=== PATIENT | male | born 1955 | race Caucasian/White ===

== ENCOUNTER 2021-12-26 21:52 | Emergency (ER) | payer OTHER, SELFPAY ==
[2021-12-26 22:40] VITALS: BP 139/77; PULSE 91; RESP 18; TEMP 37; O2SAT 97; BMI 27.8
--- NOTE | 2021-12-26 22:51 | DI.RAD.S_ITS ---
PROCEDURE: XR CHEST 1V INDICATIONS: suspected sepsis TECHNIQUE: One view of the chest was acquired. COMPARISON: None. FINDINGS: Surgical changes and devices: None. Lungs and pleura: Lungs are clear. No pleural effusions or pneumothorax. Mediastinum: Mediastinal contours appear normal. Heart size is normal. Bones and chest wall: No suspicious bony lesions. Overlying soft tissues appear unremarkable. IMPRESSION: No acute finding. Dictated by: Brandan Lowe M.D. on 12/26/2021 at 23:05 Approved by: Brandan Lowe M.D. on 12/26/2021 at 23:05
[2021-12-26 23:18] LABS: Add Manual Diff / Slide Review NO; Basophils Absolute Auto 0 /uL (0-100); Basophils Percent Auto 0.3 % (0-2); Eosinophils Absolute Auto 100 /uL (0-450); Eosinophils Percent Auto 0.7 % (2-4); Hematocrit 38.1 % (41-53); Hemoglobin 13.5 g/dL (13.5-17.5); Lymphocytes Absolute Auto 1900 /uL (1100-4500); Lymphocytes Percent Auto 20.1 % (25-40); Mean Corpuscular HGB Conc 35.5 % (30-36); Mean Corpuscular Hemoglobin 31.3 PG (26-34); Mean Corpuscular Volume 88.3 fL (80-100); Monocytes Absolute Auto 800 /uL (0-900); Monocytes Percent Auto 8.3 % (3-14); Neutrophils Absolute Auto 6800 /uL (1500-7000); Neutrophils Percent Auto 70.6 % (50-75); Platelet Count 188 X10^3/uL (150-400); Red Blood Cell Count 4.32 X10^6/uL (4.5-5.9); Red Cell Distribution Width 12.8 % (11.6-14.8); White Blood Cell Count 9.7 X10^3/uL (4.5-11.0)
[2021-12-26 23:23] LABS: Lactate (Lactic Acid) 0.8 mmol/L (0.7-2.1)
[2021-12-26 23:24] LABS: Alanine Aminotransferase 26 IU/L (<50); Albumin 4.5 g/dL (3.5-5.0); Albumin Globulin Ratio 1.6 (1.0-2.8); Alkaline Phosphatase 77 U/L (38-126); Aspartate Aminotransferase 23 IU/L (17-59); BUN Creatinine Ratio 23.9 (6-22); Bilirubin Total 0.5 mg/dL (0.2-1.3); Blood Urea Nitrogen 22 mg/dL (9-20); Calcium 8.6 mg/dL (8.4-10.2); Carbon Dioxide 27 mmol/L (22-32); Chloride 104 mmol/L (98-107); Estimated Glomerular Filt Rate > 60 mL/min (>60); Globulin 2.9 g/dL (1.7-4.1); Glucose 90 mg/dL (80-110); HEMOLYSIS < 15 (0-50); Lipase 88 U/L (23-300); Potassium 3.8 mmol/L (3.4-5.1); Sodium 140 mmol/L (137-145); Total Protein 7.4 g/dL (6.3-8.2)
[2021-12-26 23:40] LABS: Procalcitonin 0.04 ng/mL (<0.5)
[2021-12-27 02:06] VITALS: BP 156/80; PULSE 66; RESP 17; TEMP 37; O2SAT 100
--- NOTE | 2021-12-27 02:22 | DI.RAD.S_ITS ---
PROCEDURE: XR HAND LT MIN 3V INDICATIONS: Thumb pain and swelling TECHNIQUE: 3 views of the hand(s) acquired. COMPARISON: None. FINDINGS: Bones: No fractures or dislocations. Carpal bones are normally aligned. No suspicious bony lesions. Degenerative arthritis involving the 1st carpometacarpal joint and 1st MCP joint. Soft tissues: No suspicious soft tissue calcifications. IMPRESSION: Degenerative arthritis involving the 1st MCP joint and 1st carpometacarpal joint. No evidence of acute bony abnormality of the left hand. Comment: Final report is concordant with preliminary interpretation provided by [facility]. Dictated by: Yannick Soto M.D. on 12/27/2021 at 5:40 Approved by: Yannick Soto M.D. on 12/27/2021 at 5:41
--- NOTE | 2021-12-27 02:22 | DI.RAD.S_ITS ---
PROCEDURE: XR HAND RT MIN 3V INDICATIONS: Right middle finger pain and swelling TECHNIQUE: 3 views of the hand(s) acquired. COMPARISON: None. FINDINGS: Bones: No fractures or dislocations. Carpal bones are normally aligned. No suspicious bony lesions. Mild degenerative change, with most notable findings involving the 1st carpometacarpal joint and 1st MCP joint. Nonspecific subchondral cystic lesion in the scaphoid. Soft tissues: No suspicious soft tissue calcifications. IMPRESSION: No evidence of acute bony abnormality of the right hand. Arthritic change. Comment: Final report is concordant with preliminary interpretation provided by [facility]. Dictated by: Yannick Soto M.D. on 12/27/2021 at 5:37 Approved by: Yannick Soto M.D. on 12/27/2021 at 5:40
--- NOTE | 2021-12-27 02:23 | ED.SKABFB ---
HPI - Skin/Abscess/Foreign Bdy General Chief complaint: Skin/Abscess/Foreign Body Stated complaint: Fingers swollen, persistant cough Covid Neg Time Seen by Provider: 12/27/21 02:14 Source: patient and family Mode of arrival: Ambulatory Limitations: no limitations History of Present Illness HPI narrative: Patient here with spouse. Complains left thumb base pain swelling and bruising. Complaints of right middle finger dorsal surface the DIP joint pain swelling and bruising. Patient states has been working with pressures in [facility] recently. 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 Left thumb pain and swelling started yesterday. Right middle finger pain and swelling started today. Patient also complains recently COVID infection with persisting cough. No dyspnea. Related Data Previous Rx's Medication Instructions Recorded doxycycline monohydrate 100 mg 100 mg PO BID #20 caps 12/27/21 capsule Allergies Allergy/AdvReac Type Severity Reaction Status Date / Time Penicillins Allergy Verified 12/26/21 22:47 Review of Systems Review of Systems Narrative: GENERAL: Denies chills, fatigue, malaise, fever, sweats. HEENT: Denies sinus pain, ear pain, sore throat RESPIRATORY: Denies dyspnea, positive for cough CARDIOVASCULAR: Denies chest pain, palpitations GASTROINTESTINAL: Denies nausea, vomiting, abdominal pain : Denies dysuria, frequency, hematuria MUSCULOSKELETAL: Positive for muscle or bony pain SKIN: Denies rash, skin lesions NEUROLOGIC: Denies weakness, numbness ROS Unobtainable: All systems reviewed & are unremarkable except as noted in HPI and below Patient History Social History Smoking Status: Never smoker Smoking Status: Never smoker alcohol intake frequency: 0-2 drinks per day Substance Use Type: does not use Exam Narrative Exam Narrative: GENERAL: in no distress, not toxic not dyspneic HEAD: Normocephalic. EYES: Pupils equal round No scleral icterus. ENT: Mucous membranes moist. NECK: Trachea midline. CARDIOVASCULAR: Regular rate and rhythm without murmurs RESPIRATORY: Clear to auscultation. Breath sounds equal bilaterally. No wheezes, rales, or rhonchi. GASTROINTESTINAL: Abdomen soft, non-tender EXTREMITIES: Examination left hand. Base of left thumb volar aspect. There is bruising and tenderness and edema. Limited flexion of the thumb due to pain and swelling. Otherwise no necrotic tissue. Thumb is warm soft and pink. No drainage. Clinically not tenosynovitis. Patient able to rotate his thumb circularly, bend it nearly fully. Is able to fully extend. Clinically not tenosynovitis. Examination right hand. There is erythema edema and ecchymosis of the dorsal surface of the 3rd digit at the PIP joint. Limited flexion due to pain. Digit is edematous its entirety. However is able to flex and extend near fully. No pain out of proportion to exam. Able to fully extend the finger. Limited flexion of the finger due to pain on the dorsal surface. No red streaking. Clinically is not tenosynovitis No palpable or visualize papules or lesions in the forearm. No red streaking or erythema BACK: No flank tenderness. NEURO: AOx4. SKIN: Warm and dry PSYCH: Not anxious, is cooperative Initial Vital Signs Initial Vital Signs: Vital Signs Temperature 98.6 F 12/26/21 22:40 Pulse Rate 91 H 12/26/21 22:40 Respiratory Rate 18 12/26/21 22:40 Blood Pressure 139/77 12/26/21 22:40 Pulse Oximetry 97 12/26/21 22:40 Oxygen Delivery Method 12/26/21 22:40 Course Course Course Narrative: No new issues during course of stay Orders Ordered: ED Orders 12/26/21 22:51 XR chest 1V Stat RT Consult Eval and Treat NOW 12/26/21 22:59 EKG-12 Lead Stat 12/26/21 23:00 Blood Culture Stat Complete Blood Count AUTO DIFF Stat Comprehensive Metabolic Panel Stat Lactate (Lactic Acid) Stat Lipase Stat Procalcitonin Stat 12/27/21 02:22 XR hand LT min 3V Stat XR hand RT min 3V Stat Discontinued Medications Diphtheria/Tetanus/Acell Pertussis (Tet,Diph,Pertuss(Acell),Vac/Pf 0.5 Ml Syringe) 0.5 ml IM .ONCE ONE Stop: 12/27/21 02:23 Last Admin: 12/27/21 02:36 Dose: Not Given Documented By: JORGE Sodium Chloride (Normal Saline 0.9%) 1,000 mls @ 1,000 mls/hr IV BOLUS ONE Stop: 12/26/21 23:50 Last Infusion: 12/27/21 05:00 Dose: 0 mls/hr Documented By: Admin: 12/27/21 03:18 Dose: 1,000 mls/hr Documented By: HOLLY Doxycycline Hyclate 100 mg/ (Sodium Chloride) 100 mls @ 100 mls/hr IV NOW ONE Stop: 12/27/21 02:22 Last Infusion: 12/27/21 04:22 Dose: 0 mls/hr Documented By: Admin: 12/27/21 03:17 Dose: 100 mls/hr Documented By: HOLLY Reevaluation(s) Reevaluation #1: Reviewed laboratory studies and imaging with patient and spouse. At this time reassuring. Ecchymotic areas on the finger/thumb could be from the work he has done recently/crabbing, will start doxycycline given the type of an apartment he has been in. Return precautions reviewed with him Time: 04:45 Vital Signs Vital signs: Vital Signs - 8 hr 12/26/21 22:40 12/27/21 02:06 12/27/21 04:21 Temperature 98.6 F 98.6 F Pulse Rate 91 H 66 Respiratory Rate 18 17 Blood Pressure 139/77 156/80 H 134/76 Pulse Oximetry 97 100 Oxygen Delivery Method Room Air Room Air 12/27/21 04:21 Temperature Pulse Rate 70 Respiratory Rate Blood Pressure Pulse Oximetry 98 Oxygen Delivery Method MDM - Skin/Abscess/Foreign Bdy Differential Diagnosis Differential diagnosis: Likely abscess of skin or subcutaneous tissue, cellulitis and other (Tenosynovitis/pneumonia/COVID/vibrio/staph/strep infection) Lab Data Result diagrams: 12/26/21 23:00 12/26/21 23:00 Labs: Lab Results 12/26/21 12/26/21 12/26/21 Range/Units 23:00 23:00 23:00 WBC 9.7 (4.5-11.0) X10^3/uL RBC 4.32 L (4.5-5.9) X10^6/uL Hgb 13.5 (13.5-17.5) g/dL Hct 38.1 L (41-53) % MCV 88.3 (80-100) fL MCH 31.3 (26-34) PG MCHC 35.5 (30-36) % RDW 12.8 (11.6-14.8) % Plt Count 188 (150-400) X10^3/uL Neut % (Auto) 70.6 (50-75) % Lymph % (Auto) 20.1 L (25-40) % Lander % (Auto) 8.3 (3-14) % Eos % (Auto) 0.7 L (2-4) % Baso % (Auto) 0.3 (0-2) % Neut # (Auto) 6800 (9013-0818) /uL Lymph # (Auto) 1900 (0215-0048) /uL Lander # (Auto) 800 (0-900) /uL Eos # (Auto) 100 (0-450) /uL Baso # (Auto) 0 (0-100) /uL Sodium 140 (137-145) mmol/L Potassium 3.8 (3.4-5.1) mmol/L Chloride 104 (98-107) mmol/L Carbon Dioxide 27 (22-32) mmol/L BUN 22 H (9-20) mg/dL Creatinine 0.92 (0.66-1.25) mg/dL Estimated GFR > 60 (>60) mL/min BUN/Creatinine Ratio 23.9 H (6-22) Glucose 90 (80-110) mg/dL Lactate 0.8 (0.7-2.1) mmol/L Calcium 8.6 (8.4-10.2) mg/dL Total Bilirubin 0.5 (0.2-1.3) mg/dL AST 23 (17-59) IU/L ALT 26 (<50) IU/L Alkaline Phosphatase 77 (38-126) U/L Total Protein 7.4 (6.3-8.2) g/dL Albumin 4.5 (3.5-5.0) g/dL Globulin 2.9 (1.7-4.1) g/dL Albumin/Globulin Ratio 1.6 (1.0-2.8) Lipase 88 (23-300) U/L Procalcitonin 0.04 (<0.5) ng/mL Imaging Data Chest x-ray: Radiologist's Impression: [address] [address] XRay Report Signed Patient: Robert Harris MR#: [id number] : 1955 Acct:[id number] Age/Sex: 66 / M Date of Service: 12/26/21 Loc: ED Accession Number: [id number] ?? Procedure: XR chest 1V Ordering Provider: Linwood Iqbal MD PROCEDURE:? XR CHEST 1V ? INDICATIONS:? suspected sepsis ? TECHNIQUE:? One view of the chest was acquired.? ? COMPARISON:? None. ? FINDINGS:? ? Surgical changes and devices:? None.? ? Lungs and pleura:? Lungs are clear.? No pleural effusions or pneumothorax.? ? Mediastinum:? Mediastinal contours appear normal.? Heart size is normal.? ? Bones and chest wall:? No suspicious bony lesions.? Overlying soft tissues appear unremarkable.? ? IMPRESSION:? No acute finding. ? ? Dictated by: Brandan Lowe M.D. on 12/26/2021 at 23:05 ? ? Approved by: Brandan Lowe M.D. on 12/26/2021 at 23:05 ? Extremity x-ray #1: Radiologist's Impression: X-ray right hand impression polyarticular osteoarthritic changes as detailed without acute traumatic injury Extremity x-ray #2: Radiologist's Impression: X-ray left hand impression polyarticular osteoarthritic changes as detailed without acute traumatic injury ECG Data Interpretation: Normal sinus rhythm rate [address] elevation or depression MDM Narrative Medical decision making narrative: Appropriate for discharge home. Workup for COVID infection as well as cellulitis of the fingers reviewed with patient and spouse. It this time laboratory studies and imaging are reassuring. Appropriate for discharge home. Not toxic. Antibiotics started for coverage of possible cellulitis of the fingers. At this time not septic joint or tenosynovitis. Possible early cellulitis though. Possible event with patient's diffuse polyarticular arthritis may have exacerbated the joints. Causing strain and small capillary bleeding in these joints of the right finger and left thumb. Discharge Plan Departure Patient Disposition: Home Clinical Impression: Cellulitis Instructions: DI for Cellulitis -- Adult Activity Restrictions/Additional Instructions: Continue prescribed antibiotic, doxycycline. See family doctor next week for re-evaluation. Return if worse or if any questions or concerns. May continue Tylenol or ibuprofen for pain. Prescriptions: New doxycycline monohydrate 100 mg capsule 100 mg PO BID Qty: 20 0RF Visit Report Forms: Patient Portal/API
[2021-12-27] MEDS: DOXYCYCLINE 100 MG in SODIUM CHLORIDE 0.9% 100 ML IV (03:17)
[2021-12-27] MEDS: SODIUM CHLORIDE 0.9% 1,000 ML 1000 ML IV (03:18)
[2021-12-27 04:21] VITALS: BP 134/76; PULSE 70; O2SAT 98
== END 2021-12-27 05:00 | disposition home or self-care (01) ==
PROVIDERS: Emergency Provider Emergency Medicine
DX: L03.012 Cellulitis of left finger (principal); Z86.16 Personal history of COVID-19
CPT/HCPCS: 71045; 73130; 80053; 83605; 83690; 84145; 85025; 87040; 93005; 96365; 99284